=== PATIENT | female | born 1975 | race African-American/Black ===

== ENCOUNTER 2024-08-07 05:58 | Inpatient (IN) | payer MEDICAID, OTHER ==
[~2024-08-07] VITALS: Ht 167.6 cm; Wt 114.0 kg
[2024-08-07] MEDS: HYDROmorphone HCL 2 MG/ML VL/or syr IV ONE (08:00)
[2024-08-07] MEDS: METOCLOPRAMIDE HCL 5MG/ml INJ 2ml VIAL IV ONE (08:00)
[2024-08-07] MEDS: SODIUM CHLORIDE 0.9% 1,000 ML IV ONE (08:35)
[2024-08-07 08:43] LABS: Basophils # (auto) 0.1 10 ^3/uL (0-0.2); Eosinophils # (auto) 0.2 10 ^3/uL (0-0.8); Hemoglobin 9.1 g/dL (12.2-16.2); Lymphocytes # (auto) 2.7 10 ^3/uL (0.4-5.4); Monocytes # (auto) 0.4 10 ^3/uL (0-1.3); Neutrophils # (auto) 5.2 10 ^3/uL (1.6-8.6); White Blood Cell 8.6 10^3/uL (4.4-10.8)
[2024-08-07 08:49] LABS: Basophils % (auto) 0.8 % (0.0-2.0); Eosinophils % (auto) 2.4 % (0.0-7.0); Hematocrit 28.8 % (36.0-46.0); Lymphocytes % (auto) 31.1 % (10.0-50.0); Mean Corpuscular Hemoglobin 22.8 pg (28.0-32.0); Mean Corpuscular Hgb Conc. 31.6 g/dL (32.0-36.0); Mean Corpuscular Volume 72.2 fL (80.0-100.0); Monocytes % (auto) 4.8 % (0.0-12.0); Neutrophils % (auto) 60.9 % (37.0-80.0); Nucleated Red Blood Cells % 0.1 %; Platelet Count (auto) 494 10^3/uL (140-450); Red Blood Cells 3.99 10^6/uL (4.0-5.20); Red Cell Distribution Width 18.3 % (11.8-14.3)
[2024-08-07 09:02] LABS: Alanine Aminotransferase 13 U/L (7-40); Albumin 4.1 g/dL (3.2-4.8); Alkaline Phosphatase 69 U/L (46-116); Anion Gap 6 (5-15); Aspartate Aminotransferase 10 U/L (13-40); BUN/Creatinine Ratio 11.3 (10.0-20.0); Blood Urea Nitrogen 9 mg/dL (9-23); Calcium 9.2 mg/dL (8.7-10.4); Carbon Dioxide 25 mmol/L (20-31); Chloride 107 mmol/L (98-107); Glucose 101 mg/dL (74-106); Magnesium 2.2 mg/dL (1.6-2.6); Potassium 3.9 mmol/L (3.5-5.1); Sodium 138 mmol/L (136-145)
[2024-08-07 09:03] LABS: Bilirubin, Total 0.2 mg/dL (0.2-1.0); Total Protein 7.3 g/dL (5.7-8.2)
[2024-08-07 09:21] LABS: Lipase 36 U/L (12-53)
[2024-08-07] MEDS: IOHEXOL 300 MG/ML 100ML BOTTLE IJ ONE (09:32)
[2024-08-07] MEDS: MORPHINE SULFATE 4 MG/ML SYR/VIAL IV ONE (10:19)
[2024-08-07] MEDS: DOXYCYCLINE 100MG/250ML 250 ML IV SCH (16:30)
[2024-08-07] MEDS: IPRATROPIUM BROM 0.5 MG/2.5ML INH SOL NEB ONE (16:30)
[2024-08-07] MEDS ORDERED: DOCUSATE SOD 100 MG CAP PO PRN (16:30)
[2024-08-07] MEDS: DOXYCYCLINE 100MG/250ML 250 ML IV ONE (16:30)
[2024-08-07] MEDS: SODIUM CHLORIDE 0.9% 1,000 ML IV SCH (16:30)
[2024-08-07] MEDS ORDERED: ONDANSETRON HCL 4 MG/2 ML VIAL IV PRN (16:30)
[2024-08-07] MEDS: ALBUTEROL SULF 2.5 MG/0.5ML(0.5%) NEB SOLN NEB ONE (16:30)
[2024-08-07] MEDS ORDERED: NITROGLYCERIN 0.4 MG SL TAB SL PRN (16:30)
[2024-08-07 17:58] VITALS: PULSE 74; RESP 18; O2SAT 99
[2024-08-07] MEDS: IPRATROPIUM BROM 0.5 MG/2.5ML INH SOL NEB PRN (17:58)
[2024-08-07] MEDS: ALBUTEROL SULF 2.5 MG/0.5ML(0.5%) NEB SOLN NEB PRN (17:58)
[2024-08-07 18:00] VITALS: O2SAT 99
[2024-08-07 18:08] VITALS: PULSE 79; RESP 18; O2SAT 100
[2024-08-07 18:32] VITALS: BP 130/80; PULSE 73; RESP 15; TEMP 97.8; O2SAT 100
[2024-08-07 20:49] VITALS: PULSE 78; RESP 16; O2SAT 100
[2024-08-08] VITALS (10 sets, daily range): BP systolic 109–156; BP diastolic 59–89; PULSE 71–81; RESP 17–21; TEMP 97.9–98.2; O2SAT 98–100
[2024-08-08] MEDS ORDERED: LISI20TA56 PO (02:53)
[2024-08-08] MEDS ORDERED: HYDR-4072 PO (02:53)
[2024-08-08] MEDS ORDERED: IBUP-1456 PO (02:53)
[2024-08-08 06:35] LABS: Eosinophils # (auto) 0.2 10 ^3/uL (0-0.8); Lymphocytes # (auto) 3.5 10 ^3/uL (0.4-5.4); Lymphocytes % (auto) 43.8 % (10.0-50.0); Monocytes # (auto) 0.5 10 ^3/uL (0-1.3); Neutrophils # (auto) 3.7 10 ^3/uL (1.6-8.6); Nucleated Red Blood Cells % 0.1 %
[2024-08-08 06:37] LABS: Basophils # (auto) 0 10 ^3/uL (0-0.2); Basophils % (auto) 0.6 % (0.0-2.0); Eosinophils % (auto) 2.8 % (0.0-7.0); Hemoglobin 8.6 g/dL (12.2-16.2); Monocytes % (auto) 5.8 % (0.0-12.0); Red Blood Cells 3.73 10^6/uL (4.0-5.20)
[2024-08-08 06:38] LABS: Hematocrit 26.9 % (36.0-46.0); Mean Corpuscular Hgb Conc. 31.9 g/dL (32.0-36.0); Platelet Count (auto) 437 10^3/uL (140-450); Red Cell Distribution Width 18.3 % (11.8-14.3)
[2024-08-08 06:46] LABS: Alanine Aminotransferase 11 U/L (7-40); Albumin 3.6 g/dL (3.2-4.8); Alkaline Phosphatase 60 U/L (46-116); Anion Gap 6 (5-15); Aspartate Aminotransferase < 8 U/L (13-40); BUN/Creatinine Ratio 10.1 (10.0-20.0); Bilirubin, Total 0.3 mg/dL (0.2-1.0); Blood Urea Nitrogen 8 mg/dL (9-23); Calcium 8.9 mg/dL (8.7-10.4); Carbon Dioxide 25 mmol/L (20-31); Chloride 108 mmol/L (98-107); Glucose 96 mg/dL (74-106); Potassium 3.6 mmol/L (3.5-5.1); Sodium 139 mmol/L (136-145); Total Protein 6.3 g/dL (5.7-8.2)
[2024-08-08 10:54] LABS: LDL Cholesterol 65 mg/dL (< 100); Triglycerides 124 mg/dL (< 150)
[2024-08-08 10:56] LABS: Cholesterol 102 mg/dL (< 200); HDL Cholesterol 27 mg/dL (40-59)
[2024-08-08 11:01] LABS: % Iron Saturation 5.7 % (15-50); Free T4 (Free Thyroxine) 0.98 ng/dL (0.89-1.76); T3 Total 0.87 ng/mL (0.60-1.81)
[2024-08-08] MEDS ORDERED: QUET25TA37 PO (11:07)
[2024-08-08] MEDS ORDERED: TRAM50TA2 PO (11:08)
[2024-08-08] MEDS ORDERED: PROM25TA10 PO (11:09)
[2024-08-08] MEDS: PANTOPRAZOLE 40 MG TAB PO ONE (11:11)
[2024-08-08 13:01] LABS: Urine Bacteria FEW /hpf (None Seen); Urine Blood Negative /uL (Negative); Urine Clarity Clear (Clear); Urine Color Light-Yellow (Yellow); Urine Mucus FEW (None Seen); Urine Protein, UAD Negative (Negative); Urine Specific Gravity 1.017 (1.001-1.035); Urine Urobilinogen Normal (Negative); Urine WBC 9 /hpf (0 - 5); Urine pH 6.5 (5.0-9.0)
[2024-08-08 13:07] LABS: Amphetamine Screen, Urine Pos (NEGATIVE); Benzodiazephine Screen, Urine Neg (NEGATIVE)
[2024-08-08 13:08] LABS: Barbiturate Scree,Urine Neg (NEGATIVE); Cannabinoid Screen, Urine Pos (NEGATIVE); Cocaine Screen, Urine Neg (NEGATIVE); Opiate Scree,Urine Neg (NEGATIVE); Phencyclidine Screen, Urine Pos (NEGATIVE)
[2024-08-08] MEDS: cefTRIAXone 1GM/50ML D5W 50 ML IV ONE (16:31)
[2024-08-08] MEDS: IRON SUCROSE COMPLEX 100 ML IV ONE (18:09)
[2024-08-08] MEDS: LISINOPRIL 20 MG TAB PO SCH (18:09)
[2024-08-08] MEDS: MORPHINE SULFATE INJ 2 MG/ml SYRG IV PRN (18:09)
[2024-08-08] MEDS: QUEtiapine FUMARATE 25 MG TAB PO SCH (22:09)
[2024-08-08] MEDS: TEMAZEPAM 15 MG CAP PO PRN (22:09)
[2024-08-09] VITALS (7 sets, daily range): BP systolic 138–160; BP diastolic 73–85; PULSE 74–77; RESP 16–20; TEMP 36.9; O2SAT 96–100
[2024-08-09] MEDS: PANTOPRAZOLE 40 MG TAB PO SCH (04:34)
[2024-08-09] MEDS ORDERED: GADOTERATE MEG 10 MMOL/20ml INJ (0.5MMOL/ml) IV ONE (06:54)
[2024-08-09] MEDS ORDERED: GADOTERATE MEG 7.5 MMOL/15ml INJ (0.5MMOL/ml) IV ONE (06:54)
[2024-08-09] MEDS ORDERED: CIPR-173 PO (07:20)
[2024-08-09] MEDS ORDERED: FER325T PO (07:21)
[2024-08-09 08:32] LABS: Eosinophils # (auto) 0.2 10 ^3/uL (0-0.8); Hemoglobin 8.8 g/dL (12.2-16.2); Monocytes # (auto) 0.6 10 ^3/uL (0-1.3); Neutrophils # (auto) 6.2 10 ^3/uL (1.6-8.6); Nucleated Red Blood Cells % 0.1 %
[2024-08-09 08:36] LABS: Basophils # (auto) 0.1 10 ^3/uL (0-0.2); Basophils % (auto) 0.6 % (0.0-2.0); Hematocrit 27.7 % (36.0-46.0); Lymphocytes # (auto) 2.4 10 ^3/uL (0.4-5.4); Lymphocytes % (auto) 25.6 % (10.0-50.0); Mean Corpuscular Hemoglobin 22.9 pg (28.0-32.0); Mean Corpuscular Hgb Conc. 31.9 g/dL (32.0-36.0); Mean Corpuscular Volume 71.9 fL (80.0-100.0); Monocytes % (auto) 5.9 % (0.0-12.0); Neutrophils % (auto) 65.9 % (37.0-80.0); Platelet Count (auto) 451 10^3/uL (140-450); Red Blood Cells 3.85 10^6/uL (4.0-5.20); Red Cell Distribution Width 18.6 % (11.8-14.3); White Blood Cell 9.4 10^3/uL (4.4-10.8)
[2024-08-09 08:46] LABS: Chloride 106 mmol/L (98-107); Potassium 4.2 mmol/L (3.5-5.1); Sodium 138 mmol/L (136-145)
[2024-08-09 08:47] LABS: Anion Gap 9 (5-15); Calcium 9.1 mg/dL (8.7-10.4); Carbon Dioxide 23 mmol/L (20-31)
[2024-08-09 08:52] LABS: BUN/Creatinine Ratio 13.3 (10.0-20.0); Blood Urea Nitrogen 10 mg/dL (9-23); Glucose 97 mg/dL (74-106)
[2024-08-09] MEDS: cefTRIAXone 1GM/50ML D5W 50 ML IV SCH (11:07)
== END 2024-08-09 14:15 | disposition home or self-care (01) | DRG 532 ==
LOC: EDBD 05:58 → ER 05:58 → CENTRAL 16:23 → OVERFLOW 16:50 → CENTRAL 08-08 02:32
PROVIDERS: ADMIT Internal Medicine; ATTEND Internal Medicine
DX: D25.9 Leiomyoma of uterus, unspecified (principal); D69.6 Thrombocytopenia, unspecified; J45.901 Unspecified asthma with (acute) exacerbation; D50.9 Iron deficiency anemia, unspecified; F15.90 Other stimulant use, unspecified, uncomplicated; I10 Essential (primary) hypertension; N39.0 Urinary tract infection, site not specified; N83.00 Follicular cyst of ovary, unspecified side; N83.202 Unspecified ovarian cyst, left side; Z80.9 Family history of malignant neoplasm, unspecified; Z79.899 Other long term (current) drug therapy
CPT/HCPCS: 36415; 71046; 74177; 76856; 80048; 80053; 80061; 80307; 81001; 82306; 82378; 82607; 83036; 83540; 83550; 83690; 83735; 83880; 84439; 84443; 84480; 84484; 85025; 94640; 96361; 96374; G0378; J1756; J3490